=== PATIENT | male | born 1955 | race Caucasian/White ===

== ENCOUNTER 2019-10-28 07:04 | Emergency (ER) | payer OTHER ==
[2019-10-28 07:25] VITALS: BP 122/70
[2019-10-28] MEDS ORDERED: Cefdinir cap* 300 MG CAP PO ONE (07:40)
--- NOTE | 2019-10-28 07:51 | UC ---
Respiratory Complaint HPI - HPI Summary HPI Summary: 64 year old male with sinus pressure and productive cough for 11 days and now worsening. No fever. No SOB or CP. Mucinex helps a little. Exertion worsens symptoms. - History of Current Complaint Chief Complaint: UCRespiratory Stated Complaint: CHEST COLD /COUGHING Time Seen by Provider: 10/28/19 07:39 Hx Obtained From: Patient Onset/Duration: Gradual Onset Timing: Constant Severity Initially: Mild Severity Currently: Moderate Pain Intensity: 0 Character: Cough: Productive Aggravating Factors: Exertion, Deep Breaths, Recumbent Position Alleviating Factors: Bronchodilator, OTC Meds Associated Signs And Symptoms: Positive: Wheezing, URI, Nasal Congestion, Sinus Discomfort - Risk Factors Pulmonary Embolism Risk Factors: Negative Cardiac Risk Factors: Negative Pseudomonas Risk Factors: Negative Tuberculosis Risk Factors: Negative - Allergies/Home Medications Allergies/Adverse Reactions: Allergies Allergy/AdvReac Type Severity Reaction Status Date / Time ciprofloxacin [From Cipro] Allergy Unknown "internal Verified 10/28/19 07:16 rash", burning or esophagus Penicillins Allergy Unknown Vomiting Verified 10/28/19 07:16 Home Medications: Home Medications Albuterol HFA INHALER* [Ventolin HFA Inhaler*] 2 puff INH Q4H PRN 10/28/19 [ History Confirmed 10/28/19] Atorvastatin* [Lipitor 10 MG*] 10 mg PO DAILY 10/28/19 [History Confirmed ] guaiFENesin ER TAB [Mucinex*] 600 mg PO BID PRN 10/28/19 [History Confirmed 12/16] PMH/Surg Hx/FS Hx/Imm Hx Previously Healthy: Yes Endocrine History: Dyslipidemia Respiratory History: Asthma - Surgical History Surgical History: Yes Surgery Procedure, Year, and Place: Rt menicsus. right total hip. hernia repair - Social History Occupation: Employed Full-time Lives: With Family Alcohol Use: Occasionally Substance Use Type: None Smoking Status (MU): Never Smoked Tobacco Household Exposure Type: Cigarettes Review of Systems All Other Systems Reviewed And Are Negative: Yes Constitutional: Positive: Fatigue ENT: Positive: Nasal Discharge, Sinus Congestion, Sinus Pain/Tenderness Respiratory: Positive: Cough Is Patient Immunocompromised?: No Physical Exam Triage Information Reviewed: Yes Appearance: Well-Appearing, No Pain Distress, Well-Nourished Vital Signs: Initial Vital Signs Temp 97.6 F 10/28/19 07:18 Pulse 59 10/28/19 07:18 Resp 16 10/28/19 07:18 BP 122/70 10/28/19 07:18 Pulse Ox 98 10/28/19 07:18 Vital Signs Reviewed: Yes Eye Exam: Normal ENT: Positive: Nasal congestion, Nasal drainage, TM dull, Sinus tenderness. Negative: Pharyngeal erythema Neck exam: Normal Respiratory Exam: Normal Respiratory: Positive: Wheezing Cardiovascular Exam: Normal Musculoskeletal Exam: Normal Neurological Exam: Normal Psychological Exam: Normal Skin Exam: Normal Respiratory Course/Dx - Course Course Of Treatment: Based on duration of Sx start Abx. PCN allergy is GI related. Avoid that. Start cefdinir as his Sx started at as sinus and now becoming bronchitis like. If Sx worsen go to ED. No respiratory distress. Talking complete sentences. Vitals stable. If any concerns RTO. He is aware and agree to med and SE of those. - Differential Dx/Diagnosis Differential Diagnosis/HQI/PQRI: Asthma, Bronchitis, Lower Resp Infection, Sinusitis Provider Diagnosis: Bronchitis, Sinusitis Discharge ED - Sign-Out/Discharge Documenting (check all that apply): Patient Departure All imaging exams completed and their final reports reviewed: No Studies - Discharge Plan Condition: Good Disposition: HOME Prescriptions: Benzonatate CAP* [Tessalon 100 MG CAP*] 100 mg PO TID PRN #20 cap PRN Reason: Cough Cefdinir [Cefdinir 300 MG CAP] 300 mg PO BID #20 capsule Patient Education Materials: Sinusitis (ED), Acute Bronchitis (ED) Referrals: Akash Mendes MD [Primary Care Provider] - 3 Days - Billing Disposition and Condition Condition: GOOD Disposition: Home
== END 2019-10-28 07:51 | disposition home or self-care (01) ==
LOC: UCCORT 07:04
DX: J40 Bronchitis, not specified as acute or chronic (principal); J32.9 Chronic sinusitis, unspecified; E78.5 Hyperlipidemia, unspecified; J45.909 Unspecified asthma, uncomplicated; Z79.899 Other long term (current) drug therapy; Z88.0 Allergy status to penicillin; Z88.1 Allergy status to other antibiotic agents
CPT/HCPCS: 99212; A9270-GY; G0463